=== PATIENT | male | born 1950 | race Caucasian/White ===

== ENCOUNTER → 2018-01-16 | Outpatient (CLI) | payer MEDICARE, OTHER ==
--- NOTE | 2018-01-16 15:42 | NM ---
EXAMINATION TYPE: NM bone scan whole body DATE OF EXAM: 01/16/2018 COMPARISON: NONE HISTORY: Prostate cancer Delayed whole-body scanning was performed following the injection of 22.9 mCi Tc 99m MDP. Images wer e acquired 3 hours post injection. FINDINGS: There is some focal increased radiotracer accumulation in the region of the superior L3 vertebral lev el. Metastatic lesion at this level is not excluded. Some mild uptake may be in the posterior right lower cervical spine and a punctate area in the reheater helper ior left cervical spine. These areas are more likely related to degenerative change. There is some increased uptake in the region of the bilateral hips left more so than right likely rel ated to degenerative changes. IMPRESSION: 1. Degenerative changes bilateral hips and likely within the cervical spine. 2. Mild uptake within the region of the L3 vertebral body. Metastasis at this level is not excluded.
== END | disposition home or self-care (01) ==
LOC: RADNMMAIN 11:19
PROVIDERS: ATTEND Urology
DX: C61 Malignant neoplasm of prostate (principal)
CPT/HCPCS: 78306; A9503

== ENCOUNTER → 2020-02-02 | Outpatient (CLI) | payer MEDICARE, OTHER ==
--- NOTE | 2020-02-02 13:38 | XR ---
EXAMINATION TYPE: XR Hip Complete LT DATE OF EXAM: 02/02/2020 CLINICAL HISTORY: Chronic left hip pain. TECHNIQUE: AP and frogleg views of the left hip are obtained. COMPARISON: None. FINDINGS: There is no acute fracture/dislocation evident in the left hip. Advanced degenerative barrow ge with marked superior joint space loss along with subchondral cystic change and joint space scleros is. Large osteophyte from the inferior medial margin of the humeral head. Loss of normal spherical sh ape of the humeral head. Moderate to severe head and neck collar spurring. A few left-sided pelvic ph leboliths. IMPRESSION: There are advanced degenerative changes left hip joint as detailed above. Advise orthope dic surgical referral.
== END | disposition home or self-care (01) ==
LOC: RADXRMAIN 13:13
PROVIDERS: ATTEND Family Medicine
DX: M16.12 Unilateral primary osteoarthritis, left hip (principal)
CPT/HCPCS: 73502

== ENCOUNTER → 2020-03-26 | Outpatient (CLI) | payer MEDICARE, OTHER ==
[2020-03-26 08:29] LABS: HCT 43.4 % (39.0-53.0); HGB 14.5 gm/dL (13.0-17.5); MCH 30.6 pg (25.0-35.0); MCHC 33.4 g/dL (31.0-37.0); MCV 91.5 fL (80.0-100.0); Mean Platelet Volume 7.3; Platelet Count 198 k/uL (150-450); RBC 4.74 m/uL (4.30-5.90); RDW 12.6 % (11.5-15.5); WBC 4.7 k/uL (3.8-10.6)
[2020-03-26 08:33] LABS: Appearance,Urine Clear (Clear); Bilirubin,Urine Negative (Negative); Blood,Urine Negative (Negative); Color,Urine Yellow; Glucose,Urine (UA) Negative (Negative); Ketones,Urine Negative (Negative); Leukocyte Esterase,Urine Negative (Negative); Nitrite,Urine Negative (Negative); PH, Urine 7.5 (5.0-8.0); Protein,Urine Negative (Negative); Specific Gravity,Urine 1.009 (1.001-1.035); Urobilinogen,Urine <2.0 mg/dL (<2.0)
[2020-03-26 08:39] LABS: Partial Thromboplastin Time 23.8 sec (22.0-30.0); Prothrombin Time 10.1 sec (9.0-12.0)
[2020-03-26 08:51] LABS: Albumin 4.5 g/dL (3.5-5.0); Calcium 9.2 mg/dL (8.4-10.2); Potassium 4.2 mmol/L (3.5-5.1); Total Bilirubin 1.1 mg/dL (0.2-1.3); Total Protein 7.2 g/dL (6.3-8.2)
[2020-03-29 17:17] LABS: Hemoglobin A1C 5.3 % (4.0-6.0)
== END | disposition home or self-care (01) ==
LOC: LABPAT 07:50
PROVIDERS: ATTEND Orthopaedic Surgery
DX: Z01.818 Encounter for other preprocedural examination (principal); Z79.01 Long term (current) use of anticoagulants; Z01.812 Encounter for preprocedural laboratory examination
CPT/HCPCS: 36415; 80053; 81003; 83036; 85027; 85610; 85730; 86850; 86900; 86901; 87070

== ENCOUNTER 2020-04-06 08:14 | Day surgery (SDC) | payer MEDICARE, OTHER ==
[2020-04-02 17:05] VITALS: BMI 23.7
[~2020-04-06 08:14] MED LIST: ACETAMINOPHEN TAB 500 MG TAB PO ONE; DEXAMETHASONE SOD PHOSPHATE 10 MG/ML 1 ML VIAL IV ONE; GABAPENTIN 300 MG CAP PO ONE; HYDROmorphone 0.5 MG/0.5 ML SYRINGE IVP PRN; LIDOCAINE 1% (10MG/ML) FOR IV START INTRADERMA PRN; MELOXICAM 7.5 MG TAB PO ONE; MIDAZOLAM 2 MG/2 ML VIAL IV PRN; ONDANSETRON 4 MG/2 ML VIAL IVP ONE; TRANEXAMIC ACID 1,000 MG in SODIUM CHLORIDE 0.9% 100 ML IVPB ONE; fentaNYL (PF) 50 MCG/ML 2 ML AMP IV PRN
[2020-04-06] MEDS: LACTATED RINGERS 1,000 ML IV SCH (08:45)
[2020-04-06] MEDS ORDERED: PROPOFOL 10 MG/ML 20 ML VIAL IV ONE (09:38)
[2020-04-06] MEDS ORDERED: MIDAZOLAM 2 MG/2 ML VIAL ONE (09:38)
[2020-04-06] MEDS ORDERED: HEPARIN SODIUM,PORCINE 10,000 UNIT/ML 1 ML VIAL ONE (09:38)
[2020-04-06] MEDS ORDERED: fentaNYL (PF) 50 MCG/ML 2 ML AMP ONE (09:38)
[2020-04-06] MEDS ORDERED: SODIUM CHLORIDE 0.9% IRRIG 1,000 ML BTL IRRIGATION ONE (09:38)
[2020-04-06] MEDS ORDERED: SODIUM CHLORIDE 0.9% 100 ML BAG ONE (09:38)
[2020-04-06] MEDS ORDERED: TRANEXAMIC ACID 1,000 MG/10 ML VIAL ONE (09:38)
[2020-04-06] MEDS ORDERED: ceFAZolin 3,000 MG in SODIUM CHLORIDE 0.9% IRRIGATIO 3,000 ML IRRIGATION ONE (09:42)
[2020-04-06] MEDS: ROPIVACAINE 246.25 MG, EPINEPHrine 0.5 MG, KETOROLAC 30 MG, cloNIDine HCL/PF 80 MCG, WA... MISCELLANE ONE ×10 (09:59→10:58)
[2020-04-06] MEDS ORDERED: MAGNESIUM HYDROXIDE 2,400 MG/10 ML CUP PO PRN (10:12)
[2020-04-06] MEDS ORDERED: NALOXONE 0.4 MG/ML 1 ML VIAL IV PRN (10:12)
[2020-04-06] MEDS ORDERED: HYDROmorphone 0.5 MG/0.5 ML SYRINGE IVP PRN ×3 (10:12)
[2020-04-06] MEDS ORDERED: ONDANSETRON 4 MG/2 ML VIAL IVP PRN (10:12)
[2020-04-06] MEDS ORDERED: HYDROcodone/APAP 5-325MG 1 EACH TAB PO PRN ×2 (10:12)
[2020-04-06] MEDS ORDERED: LACTATED RINGERS 1,000 ML IV ONE (11:08)
--- NOTE | 2020-04-06 11:18 | P.OP ---
Date of Procedure: 04/06/20 Preoperative Diagnosis: severe osteoarthritis left hip Postoperative Diagnosis: severe osteoarthritis left hip Procedure(s) Performed: left total hip arthroplasty with a direct anterior approach Implants: King and nephew Polarstem size 5 standard King & Nephew R3, 3 hole acetabular shell, 56 mm King & Nephew reflection 6.5 mm cancellus screw, 20 mm 2 King & Nephew R3, XLPE 20 acetabular liner King & Nephew Oxinium femoral head 36 m, +4 All components were press-fit. The articulation is Oxinium on polyethylene. Anesthesia: spinal Surgeon: Raul Caraballo Repair Armature Winder Helper #1: Mildred Garg Estimated Blood Loss (ml): 100 Pathology: other (femoral head) Condition: stable Disposition: PACU Indications for Procedure: After failure of conservative treatment we discussed the surgical and nonsurgical treatment options at length. Patient wishes to proceed with a total hip arthroplasty with a direct anterior approach. Complications specific to this procedure were discussed at length, including but not limited to infection, leg length discrepancy, dislocation, and nerve injury. Covid-19 was also discussed at length with the patient, and they are aware of the current policies and procedures. The patient was given the option of delaying surgery, but they elect to proceed knowing these risks. Patient is aware of all these complications and informed consent was obtained Operative Findings: the operative findings are consistent with severe osteoarthritis of the left hip Description of Procedure: Patient was seen and evaluated in the preoperative area, consent was reviewed, and the surgical site was marked with a skin marker. Patient was then brought to the operating room and given prophylactic antibiotics intravenously. 1 g of Tranexamic acid was also given. A spinal anesthetic was administered by the anesthesia department. The patient was then placed on the [place] table with the bony prominences well-padded. The hip area was then prepped and draped in usual sterile fashion. A universal timeout was then performed, which confirmed the patient's name, surgical site, ALLERGIES, and procedure being performed. Next the incision site was located at 1 cm distal and 1 cm lateral to the anterior superior iliac spine. The skin and subcutaneous tissues were sharply incised. Incision was carefully dissected down to the fascia overlying the tensor fascia shon muscle. This fascia was then incised in line with the incision. Next, using blunt finger dissection, the tensor fascia shon muscle was dissected off its investing fascia. The muscle was then carefully retracted laterally with a cobra retractor over the lateral neck of the femur. Next, the circumflex vessels were identified and cauterized using the AquaMantis device. The anterior hip capsule was then exposed. The capsule was then opened and an inverted T fashion. Cobra retractors were then placed intracapsularly. The proximal femur was then visualized. The femoral neck was then osteotomized appropriate level above the lesser trochanter. Small amount of traction was placed with the [place] table. A small wedge of bone was then removed from the remaining femoral head. Next, using a corkscrew femoral head was easily removed from the acetabulum. On gross visual inspection, the femoral head had complete loss of articular cartilage in multiple periarticular osteophytes. Attention was then turned to the acetabulum. the acetabulum was exposed and any remaining labrum was excised. Sequential reaming of the acetabulum was performed using fluoroscopic guidance. When the appropriate size was reached, a trial was then placed. The position and fit of the trial was checked with fluoroscopy. The trial was then removed. Then, using fluoroscopic guidance, the final implant was impacted at 20 of anteversion and 40 of abduction, and fully seated in the acetabulum. 2 screws were then placed in the acetabulum. Again fluoroscopy was used to check pos ition of the screws. Next, the liner was then impacted, with a 20 elevated liner located in the anterior superior quadrant. Component locking was confirmed. Attention was then directed to the femur. With the aid of the [place] table, the femur was externally rotated to approximately 130, extended, and abducted under the opposite leg. A side hook was then placed under the proximal femur, and the side hook elevator was used to elevate the proximal femur. Retractors were then placed. A capsular release was performed, as well as a release of the conjoined tendon, which afforded excellent visualization of the proximal femur. Next, a box osteotome was used to lateralize the proximal femur. A fifth hand was then used to locate the femoral canal. Sequential broaching was then performed with appropriate size which afforded excellent fixation in the proximal femur. A trial was then placed with appropriate head and neck, and the hip was gently reduced with the aid of the [place] table. Fluoroscopy was then used to check position of the components, as well as to ensure equal leg lengths. The hip was then gently dislocated and the trials were then removed. Final implants were then impacted and the hip was again reduced. Final fluoroscopic x-rays confirmed that the components were in anatomic position, as well as equal leg lengths. The hip was also taken through range of motion, and found to be stable. The hip was then copiously irrigated with antibiotic solution with pulsatile lavage. The hip was then irrigated with Irrisept solution. The soft tissues were then injected with a ropivacaine solution, which consisted of 246.25 mg of ropivacaine, 0.5 mg of epinephrine, 30 mg of Toradol, 80 g of clonidine, and 48.45 mL of sterile water, for a total of 100 mL of fluid injected. A second dose of 1 g of Tranexamic acid was also given. the fascia was then closed with 2-0 strata fix suture. The subcutaneous tissue was closed with 3-0 Vicryl. The subcuticular tissue was closed with 3-0 strata fix suture. The skin was then closed with Dermabond glue and a sterile silver dressing. The patient was then transferred to the recovery room in stable condition. The physiotherapy assistant LAURIE Rudd was required due to the complexity of surgery, and the need for skilled lpn or medical assistant for positioning, draping, exposure, retraction, and closure of the wound.
--- NOTE | 2020-04-06 11:36 | FL ---
Fluoroscopy History: Lt anterior hip 42 sec FL seconds of fluoroscopic time and 2 films are submitted for Lt anterior hip .
--- NOTE | 2020-04-06 12:22 | XR ---
EXAMINATION TYPE: XR Hip Limited LT DATE OF EXAM: 04/06/2020 CLINICAL HISTORY: Postoperative evaluation TECHNIQUE: Single portable view of the left hip was submitted. FINDINGS: Noted are changes of total hip arthroplasty with femoral and acetabular components appearin g well seated. Alignment is anatomic. Postsurgical soft tissue changes are evident. IMPRESSION: Satisfactory postoperative alignment
[2020-04-06] MEDS ORDERED: hydrALAZINE HCL 20 MG/ML 1 ML VIAL IVP PRN (18:32)
[2020-04-06 19:03] LABS: Basophils % (A) 0 %; Eosinophils % (A) 0 %; HCT 39.1 % (39.0-53.0); HGB 13.2 gm/dL (13.0-17.5); Lymphocytes # (A) 0.3 k/uL (1.0-4.8); Lymphocytes % (A) 3 %; MCH 31.6 pg (25.0-35.0); MCHC 33.7 g/dL (31.0-37.0); MCV 93.8 fL (80.0-100.0); Mean Platelet Volume 7.4; Monocytes # (A) 0.8 k/uL (0-1.0); Monocytes % (A) 7 %; Neutrophils # (A) 10.8 k/uL (1.3-7.7); Neutrophils % (A) 90 %; Platelet Count 190 k/uL (150-450); RBC 4.17 m/uL (4.30-5.90); RDW 11.8 % (11.5-15.5)
[2020-04-06 19:24] LABS: ALT 26 U/L (4-49); AST 44 U/L (17-59); African American GFR (CKD) 73 (>60 ml/min/1.73 sqM); Albumin 3.7 g/dL (3.5-5.0); Albumin/Globulin Ratio 1.5; Alkaline Phosphatase 59 U/L (38-126); Anion Gap 5 mmol/L; Blood Urea Nitrogen 22 mg/dL (9-20); Calcium 8.7 mg/dL (8.4-10.2); Carbon Dioxide 28 mmol/L (22-30); Chloride 102 mmol/L (98-107); Globulin 2.5 g/dL; Glucose 123 mg/dL (74-99); Non-African American GFR(CKD) 63 (>60 ml/min/1.73 sqM); Potassium 4.7 mmol/L (3.5-5.1); Sodium 135 mmol/L (137-145); Total Bilirubin 0.9 mg/dL (0.2-1.3); Total Protein 6.2 g/dL (6.3-8.2)
[2020-04-06] MEDS: SODIUM CHLORIDE 0.9% 1,000 ML IV SCH (19:26)
--- NOTE | 2020-04-06 19:36 | XR ---
EXAMINATION TYPE: XR chest 1V portable DATE OF EXAM: 04/06/2020 COMPARISON: NONE HISTORY: Short of breath TECHNIQUE: Single view FINDINGS: Heart is normal. Lungs are clear. There is no heart failure. Diaphragm is normal. There are chest leads. Bony thorax is intact. IMPRESSION: No active cardiopulmonary disease. No evidence of heart failure.
[2020-04-06] MEDS ORDERED: SENNOSIDES-DOCUSATE SODIUM 1 EACH TAB PO SCH (21:00)
[2020-04-06] MEDS ORDERED: LOSARTAN 25 MG TAB PO SCH (21:00)
[2020-04-06] MEDS: ASPIRIN 325 MG TAB PO SCH (21:08)
[2020-04-07] MEDS: SODIUM CHLORIDE 0.9% 1,000 ML IV SCH (01:29)
[2020-04-07] MEDS: LACTATED RINGERS 1,000 ML IV SCH (01:30)
--- NOTE | 2020-04-07 02:07 | CONS ---
CONSULTATION REASON FOR CONSULTATION: Advice regarding hypertension and multiple other medical issues, requested by Orthopedic Surgery. HISTORY OF PRESENT ILLNESS: This 70-year-old gentleman with a past medical history of hypertension, DJD, history of nodule of the voice box being followed by Dr. Jose Alfredo Torres in the outpatient setting underwent left total hip joint arthroplasty for severe DJD by Dr. Caraballo. Postoperatively, patient was noted to have some in the rhythm strips and EKG was done which showed some bradycardia and as well as some peaked T-waves. Otherwise, there is no history of chest pain, palpitations, hematochezia or melena. The initial troponins were negative. Patient admitted for further evaluation and treatment. There is no shortness of breath, hematochezia or melena. PAST MEDICAL: Hypertension, history of DJD, history of nodule of voice box. MEDICATIONS: Medications prior to admission include home medications: Irbesartan 75 mg at bedtime. ALLERGIES: KETAMINE. FAMILY HISTORY: No history of heart disease or strokes in the family. SOCIAL HISTORY: No history of smoking. No history of alcohol intake. REVIEW OF SYSTEMS: ENT: No diminished hearing or diminished vision. CARDIOVASCULAR SYSTEM: As mentioned earlier. RESPIRATORY SYSTEM: No cough or hemoptysis. GI: No nausea. : No dysuria. NERVOUS SYSTEM: No numbness or weakness. ALLERGY/IMMUNOLOGY: No asthma or hayfever. MUSCULOSKELETAL: As mentioned earlier. HEMATOLOGY: No history of anemia. ENDOCRINE: No history of diabetes or hypothyroidism. CONSTITUTIONAL: As mentioned earlier. DERMATOLOGY: Negative. RHEUMATOLOGY: Negative. PSYCHIATRY: As mentioned earlier. PHYSICAL EXAMINATION: Patient is alert and oriented x3. Pulse 64, blood pressure 170/93, respiration 17, temperature 97.7, pulse ox 100% on room air. HEENT: Conjunctivae normal. Oral mucosa moist. NECK: No jugular venous distention. No carotid bruit. No lymph node enlargement. CARDIOVASCULAR: S1, S2 muffled. RESPIRATORY: Breath sounds diminished at the bases. No rhonchi. No crackles. ABDOMEN: Soft, nontender. No mass palpable. LEGS: Status post surgery. NERVOUS SYSTEM: Higher functions as mentioned earlier. Moves all 4 limbs. No focal motor or sensory deficit. LYMPHATICS: No lymphadenopathy of the neck, axillae or groin. SKIN: No ulcer, rash or bleeding. JOINTS: No active deforming arthropathy. LABS: Labs at this time show troponin less than 0.012. ASSESSMENT: 1. Status post left total hip joint arthroplasty for severe degenerative joint disease. 2. Minimal ST depressions apparently on the rhythm strips. 3. History of hypertension. 4. History of degenerative joint disease. 5. History of nodule of the larynx. 6. History of bicipital tendon repair. 7. History of rectal fissure. 8. History of prostatectomy. 9. FULL CODE. RECOMMENDATIONS AND DISCUSSION: This 70-year-old gentleman who presented with multiple medical issues, at this time I recommend continue the current medication, continue symptomatic treatment. Resume the home medication. Monitor blood pressure closely. Use p.r.n. antihypertensive medications if the blood pressure is extremely high. Otherwise, I would also recommend serial troponins and as well as repeat EKG in the morning and the patient does not have any chest pain currently. The patient might require some workup as an outpatient for which the patient can follow up with Dr. Torres. Otherwise, will continue to closely monitor. Recommend incentive spirometry, DVT prophylaxis. Thank you Dr. Caraballo for letting us participate in the care of this patient. MMODL / IJN: [id number] / OCTAVIA
[2020-04-07 06:33] LABS: Basophils % (A) 0 %; Eosinophils % (A) 0 %; HCT 35.8 % (39.0-53.0); HGB 12.2 gm/dL (13.0-17.5); Lymphocytes # (A) 0.9 k/uL (1.0-4.8); Lymphocytes % (A) 12 %; MCH 31.9 pg (25.0-35.0); MCHC 34.1 g/dL (31.0-37.0); MCV 93.5 fL (80.0-100.0); Mean Platelet Volume 7.2; Monocytes # (A) 0.7 k/uL (0-1.0); Monocytes % (A) 8 %; Neutrophils # (A) 6.3 k/uL (1.3-7.7); Neutrophils % (A) 79 %; Platelet Count 172 k/uL (150-450); RBC 3.83 m/uL (4.30-5.90); RDW 11.9 % (11.5-15.5)
[2020-04-07] MEDS: ASPIRIN 325 MG TAB PO SCH (08:20)
[2020-04-07] MEDS ORDERED: MELOXICAM 7.5 MG TAB PO SCH (09:00)
[2020-04-07 09:26] VITALS: BP 132/72; PULSE 74; RESP 16; TEMP 98.5
--- NOTE | 2020-04-07 10:45 | P.DS ---
Providers Expected date of discharge: 04/07/20 Attending physician: Raul Caraballo Consults: 04/06/20 10:12 Consult Physician Routine Consulting Provider: Irma Díaz Consult Reason/Comments: medical management Do you want consulting provider notified?: Yes Primary care physician: Jose Alfredo Torres - Discharge Diagnosis(es) (1) Osteoarthritis of left hip Current Visit: Yes Status: Acute (2) S/P total hip arthroplasty Current Visit: Yes Status: Acute Hospital Course: This is a 70-year-old male with known history of degenerative arthritis of the left hip. The patient presents for evaluation. After discussion and consideration patient elects to proceed with total hip arthroplasty. The patient is seen preoperatively by Dr. Caraballo and cleared for surgery. Patient is admitted to [facility] on 04/06/2020 for total hip arthroplasty. The procedures performed without complication or sequelae. The patient is doing well postoperatively. Labs and vital signs are stable on day of discharge. On day of discharge patient's hip incision is healing well. There is minimal erythema. There is no drainage noted at this time. There is minimal soft tissue swelling to the hip and thigh. Patient has full foot and ankle motion without difficulty or pain. Neurovascular status to the left lower extremity is intact. Opioid start talking form is discussed and signed. Patient is discharged home in good condition. Please see med rec for accurate list of home medications. Plan - Discharge Summary Discharge Rx Participant: No New Discharge Prescriptions: New Aspirin 325 mg PO BID #60 tab HYDROcodone/APAP 5-325MG [[place] 5-325] 1 - 2 tab PO Q6HR PRN #48 tab PRN Reason: Pain Sennosides [Senokot] 2 tab PO DAILY PRN #60 tablet PRN Reason: Constipation No Action Irbesartan 75 mg PO HS Discharge Medication List Irbesartan 75 mg PO HS 04/02/20 [History] Aspirin 325 mg PO BID #60 tab 04/07/20 [Rx] HYDROcodone/APAP 5-325MG [[place] 5-325] 1 - 2 tab PO Q6HR PRN #48 tab 04/07/20 [Rx] Sennosides [Senokot] 2 tab PO DAILY PRN #60 tablet 04/07/20 [Rx] Follow up Appointment(s)/Referral(s): Raul Caraballo DO [Doctor of Osteopathic Medicine] - 2 Weeks Activity/Diet/Wound Care/Special Instructions: Weightbearing as tolerated with walker Leave dressing intact. Dressing may be removed by home care nurse in 10 days. May shower with dressing on. Please take aspirin 325 mg twice daily for 30 days to prevent blood clots. Please wear compression stockings during the day until follow-up appointment to help prevent blood clots. May remove at night. [facility]up with [facility] in [facility] weeks, please call with any questions or concerns [phone] Discharge Disposition: HOME WITH HOME HEALTH SERVICES
--- NOTE | 2020-04-07 22:11 | PN ---
PROGRESS NOTE DATE OF SERVICE: 04/07/2020 This 70-year-old gentleman who was admitted after left total hip joint arthroplasty is improving significantly. No chest pain. No palpitations. No fever. PHYSICAL EXAMINATION: Alert and oriented x3. Pulse is 74, blood pressure 132/72, respirations 16, temperature 98.2, pulse ox 98% on room air. HEENT: Conjunctivae normal. NECK: No jugular venous distention. CARDIOVASCULAR SYSTEM: S1, S2 muffled. RESPIRATORY SYSTEM: Breath sounds diminished at the bases. ABDOMEN: Soft. LEGS: Status post surgery. NERVOUS SYSTEM: No focal deficit. LABS: Hemoglobin 12.8, white count is 8, sodium 135. ASSESSMENT: 1. Status post left total hip joint arthroplasty for severe degenerative joint disease. 2. Minimal ST depression apparently on the rhythm strips with normal EKG. 3. History of hypertension. 4. History of degenerative joint disease. 5. History of nodule in the larynx. 6. History of bicipital tendon repair. 7. History of rectal fissure. 8. History of prostatectomy. 9. FULL CODE. RECOMMENDATIONS AND DISCUSSION: I recommend to continue current medications, continue with the monitoring, symptomatic treatment. I recommend close followup with primary physician. The troponins are negative. DVT prophylaxis. Further recommendations to follow. MMODL / IJN: [id number] /
== END 2020-04-07 11:52 | disposition home health service (06) ==
LOC: OR 08:14 → 4SSUR 11:22 → OR 04-07 11:52
PROVIDERS: ATTEND Orthopaedic Surgery
DX: M16.12 Unilateral primary osteoarthritis, left hip (principal); I97.191 Other postprocedural cardiac functional disturbances following other surgery; I10 Essential (primary) hypertension; Z88.8 Allergy status to other drugs, medicaments and biological substances; Z79.1 Long term (current) use of non-steroidal anti-inflammatories (NSAID); Z79.899 Other long term (current) drug therapy; Z85.46 Personal history of malignant neoplasm of prostate; Z90.79 Acquired absence of other genital organ(s); Z98.49 Cataract extraction status, unspecified eye; Z82.49 Family history of ischemic heart disease and other diseases of the circulatory system
CPT/HCPCS: 93005; 97110; 97161; 97165; 86891; 80053; 84484 ×2; 85025 ×2; 88300; 73501 ×2; 71045; 27130; C1776; J0171; J1100; J0690 ×3; J2405; J1885; J2795; J0735; J1170; 86850; 86900; 86901

== ENCOUNTER → 2020-08-04 | Outpatient (CLI) | payer MEDICARE, OTHER ==
[2020-08-04 08:16] LABS: HCT 41.2 % (39.0-53.0); HGB 13.9 gm/dL (13.0-17.5); MCH 30.6 pg (25.0-35.0); MCHC 33.7 g/dL (31.0-37.0); MCV 90.7 fL (80.0-100.0); Mean Platelet Volume 8.1; Platelet Count 158 k/uL (150-450); RBC 4.55 m/uL (4.30-5.90); RDW 13.1 % (11.5-15.5); WBC 3.6 k/uL (3.8-10.6)
[2020-08-04 08:25] LABS: Partial Thromboplastin Time 22.9 sec (22.0-30.0); Prothrombin Time 10.5 sec (9.0-12.0)
[2020-08-04 08:28] LABS: Albumin 4.3 g/dL (3.5-5.0); Potassium 4.5 mmol/L (3.5-5.1); Total Bilirubin 1.2 mg/dL (0.2-1.3)
[2020-08-04 09:14] LABS: Appearance,Urine Clear (Clear); Bilirubin,Urine Negative (Negative); Blood,Urine Negative (Negative); Color,Urine Yellow; Glucose,Urine (UA) Negative (Negative); Ketones,Urine Negative (Negative); Leukocyte Esterase,Urine Negative (Negative); Nitrite,Urine Negative (Negative); Protein,Urine Negative (Negative); Specific Gravity,Urine 1.014 (1.001-1.035); Urobilinogen,Urine <2.0 mg/dL (<2.0)
== END | disposition home or self-care (01) ==
LOC: LABWHC1 07:45
PROVIDERS: ATTEND Orthopaedic Surgery
DX: Z01.818 Encounter for other preprocedural examination (principal); Z79.01 Long term (current) use of anticoagulants; Z01.812 Encounter for preprocedural laboratory examination
CPT/HCPCS: 36415; 80053; 81003; 85027; 85610; 85730; 87070

== ENCOUNTER 2020-08-10 05:45 | Day surgery (SDC) | payer MEDICARE, OTHER ==
[2020-08-09 09:11] VITALS: BMI 25.1
[~2020-08-10 05:45] MED LIST changes: -ACETAMINOPHEN TAB 500 MG TAB PO ONE; +ACETAMINOPHEN TAB 500 MG TAB PO PRN; -DEXAMETHASONE SOD PHOSPHATE 10 MG/ML 1 ML VIAL IV ONE; +DEXAMETHASONE SOD PHOSPHATE 4 MG/ML 1 ML VIAL IV ONE; -GABAPENTIN 300 MG CAP PO ONE; +GABAPENTIN 300 MG CAP PO PRN; -HYDROmorphone 0.5 MG/0.5 ML SYRINGE IVP PRN; +LACTATED RINGERS 1,000 ML IV SCH; -MELOXICAM 7.5 MG TAB PO ONE; +MELOXICAM 7.5 MG TAB PO PRN; +ROPIVACAINE 246.25 MG, EPINEPHrine 0.5 MG, KETOROLAC 30 MG, cloNIDine HCL/PF 80 MCG, WA... MISCELLANE PRN; -TRANEXAMIC ACID 1,000 MG in SODIUM CHLORIDE 0.9% 100 ML IVPB ONE; +TRANEXAMIC ACID 1,000 MG in SODIUM CHLORIDE 0.9% 100 ML IVPB PRN; -fentaNYL (PF) 50 MCG/ML 2 ML AMP IV PRN
[2020-08-10] MEDS ORDERED: HYDROmorphone 0.2 MG/1 ML SYRINGE IVP PRN (05:50)
[2020-08-10] MEDS ORDERED: HYDROmorphone 0.5 MG/0.5 ML SYRINGE IVP PRN ×3 (05:50→07:00)
[2020-08-10] MEDS ORDERED: NALOXONE 0.4 MG/ML 1 ML VIAL IV PRN (05:50)
[2020-08-10] MEDS ORDERED: HYDROcodone/APAP 7.5-325MG 1 EACH TAB PO PRN ×2 (05:53)
[2020-08-10] MEDS ORDERED: SODIUM CHLORIDE 0.9% 1,000 ML IV SCH (06:00)
[2020-08-10] MEDS ORDERED: fentaNYL (PF) 50 MCG/ML 2 ML AMP IV PRN (07:00)
[2020-08-10] MEDS ORDERED: PROPOFOL 10 MG/ML 20 ML VIAL IV ONE (07:04)
[2020-08-10] MEDS ORDERED: TRANEXAMIC ACID 1,000 MG/10 ML VIAL ONE (07:04)
[2020-08-10] MEDS ORDERED: SODIUM CHLORIDE 0.9% IRRIG 1,000 ML BTL IRRIGATION ONE (07:04)
[2020-08-10] MEDS ORDERED: MIDAZOLAM 2 MG/2 ML VIAL ONE (07:04)
[2020-08-10] MEDS ORDERED: HEPARIN SODIUM,PORCINE 10,000 UNIT/ML 1 ML VIAL ONE (07:04)
[2020-08-10] MEDS ORDERED: LIDOCAINE 1% INJ 10MG/ML (20 ML MDV) ONE (07:04)
[2020-08-10] MEDS ORDERED: ePHEDrine SULFATE/0.9% NACL/PF 50 MG/5 ML SYRINGE IV ONE (07:04)
[2020-08-10] MEDS ORDERED: ROCURONIUM 10 MG/ML (5 ML VIAL) IV ONE (07:04)
[2020-08-10] MEDS ORDERED: SODIUM CHLORIDE 0.9% 100 ML BAG ONE (07:04)
[2020-08-10] MEDS ORDERED: fentaNYL (PF) 50 MCG/ML 2 ML AMP ONE (07:04)
[2020-08-10] MEDS ORDERED: ceFAZolin 3,000 MG in SODIUM CHLORIDE 0.9% IRRIGATIO 3,000 ML IRRIGATION ONE (07:09)
[2020-08-10] MEDS ORDERED: LACTATED RINGERS 1,000 ML IV ONE (08:33)
--- NOTE | 2020-08-10 08:33 | P.OP ---
Date of Procedure: 08/10/20 Preoperative Diagnosis: Severe Osteoarthritis right hip Postoperative Diagnosis: Severe osteoarthritis right hip Procedure(s) Performed: Right total hip arthroplasty with a direct anterior approach Implants: King & Nephew Polarstem standard size 5 King & Nephew R3, 3 hole hemispherical acetabular shell, 56 mm King & Nephew Reflection 6.5 mm cancellus screw, 20 mm 2 King & Nephew R3, XLPE 20 acetabular liner King & Nephew Oxinium femoral head 36 m, +4 All components were press-fit. The articulation is Oxinium on polyethylene. Anesthesia: GETA Surgeon: Raul Caraballo Pinking Machine Operator #1: Mildred Garg Estimated Blood Loss (ml): 250 (70 mL returned with Cell Saver) Pathology: other (Femoral head) Condition: stable Disposition: PACU Indications for Procedure: After failure of conservative treatment we discussed the surgical and nonsurgical treatment options at length. Patient wishes to proceed with a total hip arthroplasty with a direct anterior approach. Complications specific to this procedure were discussed at length, including but not limited to infection, leg length discrepancy, dislocation, nerve injury, and fracture. Covid-19 was also discussed at length with the patient, and they are aware of the current policies and procedures. The patient was given the option of delaying surgery, but they elect to proceed knowing these risks. Patient is aware of all these complications and informed consent was obtained Operative Findings: The operative findings are consistent with severe osteoarthritis of the right hip Description of Procedure: Patient was seen and evaluated in the preoperative area and the consent was reviewed. The operative site was marked with a skin marker. The patient was then brought to the operating room and given preoperative antibiotics intravenously. 1 g of Tranexamic acid was also given intravenously. A spinal anesthetic was administered by the anesthesia department. The patient was then placed on the [place] table with the bony prominences well-padded. The hip area was then prepped with a ChloraPrep solution and draped in the usual sterile fashion. A universal timeout was then performed, which confirmed the patient's name, surgical site, ALLERGIES, and procedure being performed on the consent. Next the incision site was located at the flexion crease of the right hip. The skin and subcutaneous tissues were sharply incised. Incision was carefully dissected down to the fascia overlying the tensor fascia shon muscle. This fascia was then incised in line with the incision. Care was taken to stay laterally in order to avoid injuring the lateral femoral cutaneous nerve. Next, using blunt finger dissection, the tensor fascia shon muscle was dissected off its investing fascia. The muscle was then carefully retracted laterally with a cobra retractor over the lateral neck of the femur. Next, the circumflex vessels were identified and cauterized using the AquaMantis device. The anterior hip capsule was then exposed. The capsule was then opened and an inverted T fashion. Cobra retractors were then placed intracapsularly. The retractors were maintained intracapsular throughout the procedure. The proximal femur was then visualized. A small amount of traction was placed on the leg. The femoral neck was then osteotomized appropriate level above the lesser trochanter. A small wedge of bone was then removed from the remaining femoral head. Next, using a corkscrew the femoral head was removed from the acetabulum. On gross visual inspection, the femoral head had complete loss of articular cartilage and multiple periarticular osteophytes. The femoral head was then measured. Attention was then turned to the acetabulum. The acetabulum was exposed and any remaining labrum was excised. Sequential reaming of the acetabulum was performed using fluoroscopic guidance until there was a good bed of bleeding cancellus bone. When the appropriate size was reached, a trial was then placed. The position and fit of the trial was checked with fluoroscopy. The trial was then removed. Then, using fluoroscopic guidance, the final implant was impacted at 20 of anteversion and 40 of abduction, and fully seated in the acetabulum. 2 screws were then placed in the acetabulum. Again fluoroscopy was used to check position of the screws. Next, the liner was then impacted, with a 20 elevated liner located in the anterior superior quadrant. Component locking was confirmed. Attention was then directed to the femur. With the aid of the [place] table, the femur was externally rotated to approximately 130, extended, and adducted under the opposite leg. A side hook was then placed under the proximal femur, and the side hook elevator was used to elevate the proximal femur while releasing the capsule. Retractors were then placed. A capsular release was performed, as well as a release of the conjoined tendon, which afforded excellent visualization of the proximal femur. Next, a box osteotome was used to lateralize the proximal femur. A assembly hand was then used to locate the femoral canal. Sequential broaching was then performed with appropriate size wh ich afforded excellent fixation in the proximal femur. A trial was then placed with appropriate head and neck, and the hip was gently reduced with the aid of the [place] table. Fluoroscopy was then used to check position of the components, as well as to ensure equal leg lengths. The hip was then gently dislocated and the trials were then removed. Final implants were then impacted and the hip was again reduced. Final fluoroscopic x-rays confirmed that the components were in anatomic position, as well as equal leg lengths. The hip was also taken through range of motion, and found to be stable. The hip was then copiously irrigated with antibiotic solution with pulsatile lavage. The hip was then irrigated with Irrisept solution. The soft tissues were then injected with a ropivacaine solution, which consisted of 246.25 mg of ropivacaine, 0.5 mg of epinephrine, 30 mg of Toradol, 80 g of clonidine, and 48.45 mL of sterile water, for a total of 100 mL of fluid injected. A second dose of 1 g of Tranexamic acid was also given intravenously. Any blood collected by Cell Saver was then returned to the patient at this time. The fascia was then closed with 2-0 strata fix suture. The subcutaneous tissue was closed with 3-0 Vicryl. The subcuticular tissue was closed with 3-0 strata fix suture. The skin was then closed with Exofin skin glue. After the glue and dried, and Optifoam silver impregnated dressing was applied. The patient was then transferred to the recovery room in stable condition. The assistant account executive LAURIE Rudd was required due to the complexity of surgery, and the need for skilled entry level administrative assistant for positioning, draping, exposure, retraction, and closure of the wound.
--- NOTE | 2020-08-10 08:42 | XR ---
Fluoroscopy INDICATION: Pain FINDINGS: Fluoroscopy time: 19 seconds. Images obtained: 2. IMPRESSIONS: 1. Documentation of fluoroscopy.
[2020-08-10 08:57] VITALS: TEMP 97.1
--- NOTE | 2020-08-10 09:07 | XR ---
EXAMINATION TYPE: XR Hip Limited RT DATE OF EXAM: 08/10/2020 Comparison: None Clinical History: 70-year-old male Status post hip surgery, assess surgical alignment Findings: Image shows placement of right thoracoplasty. The acetabular cup and femoral stem components of the p rosthesis appear well seated without prosthetic fracture. Alignment grossly anatomic. Scattered soft tissue and intra-articular air relating to recent operation. Impression: Uncomplicated postoperative appearance right total hip arthroplasty.
[2020-08-10 09:17] VITALS: RESP 16
[2020-08-10] MEDS ORDERED: ONDANSETRON 4 MG/2 ML VIAL IVP PRN (12:00)
[2020-08-10 12:09] VITALS: BP 118/76; PULSE 80
== END 2020-08-10 13:52 | disposition home health service (06) ==
LOC: OR 05:45
PROVIDERS: ATTEND Orthopaedic Surgery
DX: M16.11 Unilateral primary osteoarthritis, right hip (principal); M25.751 Osteophyte, right hip; I10 Essential (primary) hypertension; Z88.4 Allergy status to anesthetic agent; Z79.899 Other long term (current) drug therapy; Z90.79 Acquired absence of other genital organ(s); Z98.890 Other specified postprocedural states; Z98.41 Cataract extraction status, right eye; Z98.42 Cataract extraction status, left eye; Z96.642 Presence of left artificial hip joint; Z85.46 Personal history of malignant neoplasm of prostate; Z79.891 Long term (current) use of opiate analgesic; Z79.1 Long term (current) use of non-steroidal anti-inflammatories (NSAID); Z82.49 Family history of ischemic heart disease and other diseases of the circulatory system
CPT/HCPCS: 27130; 97162; 86891; 88300; 73501; C1776; J2250; J0171; J1644; J1100; J0690 ×2; J2405; J2001; J3010; J1885; J2795; J2704; J0735; 86850; 86900; 86901

== ENCOUNTER → 2020-08-24 | Outpatient (CLI) | payer MEDICARE, OTHER | END | disposition home or self-care (01) | LOC: LABWHC1 16:43 | PROVIDERS: ATTEND Family Medicine | DX: Z20.822 Contact with and (suspected) exposure to COVID-19 (principal); R50.9 Fever, unspecified | CPT/HCPCS: U0003; C9803; U0005 ==

== ENCOUNTER 2020-09-04 08:53 | Inpatient (IN) | payer MEDICARE, OTHER ==
[2020-09-04] MEDS ORDERED: SODIUM CHLORIDE 0.9% 500 ML 500 ML IV STA (09:13)
[2020-09-04] MEDS ORDERED: ACETAMINOPHEN TAB 325 MG TAB PO STA (09:14)
--- NOTE | 2020-09-04 09:18 | ED ---
General Adult HPI - General Chief complaint: Nausea/Vomiting/Diarrhea Stated complaint: COVID+, NVD Time Seen by Provider: 09/04/20 09:02 Source: patient, RN notes reviewed Mode of arrival: ambulatory Limitations: no limitations - History of Present Illness Initial comments: 70-year-old male with a past medical history of hypertension, hip replacement p resents to the emergency room for a chief complaint of weakness. Patient states that he tested positive for COVID 13 days ago. States that since that time he has felt weak and has had low-grade fevers. State he is feeling his worst today. Patient states he has had a persistent cough. He denies shortness of breath or chest pain. Patient reports that 2 days ago he had an episode of diarrhea. S tates that today he tried to drink some coffee and had some nausea and a little bit of vomiting. Patient states that he decided to come into the ER because he is not getting better.Patient has no other complaints at this time including shortness of breath, chest pain, abdominal pain, headache, or visual changes. - Related Data Home Medications Medication Instructions Recorded Confirmed Irbesartan 75 mg PO HS 04/02/20 09/04/20 Cholecalciferol [Vitamin D3 (25 25 mcg PO DAILY 08/06/20 09/04/20 Mcg = 1000 Iu)] Fluticasone Nasal [place] [Flonase 2 spr EA NOSTRIL DAILY 08/06/20 09/04/20 Nasal [place]] Multivitamins, Thera [Multivitamin 1 tab PO DAILY 08/06/20 09/04/20 (formulary)] Ubidecarenone [Co Q-10] 200 mg PO DAILY 08/06/20 09/04/20 Zinc 50 mg PO DAILY 08/06/20 09/04/20 Cbd Oil 1 dose PO DAILY 09/04/20 09/04/20 Previous Rx's Medication Instructions Recorded Aspirin 325 mg PO BID #60 tab 08/10/20 Allergies Allergy/AdvReac Type Severity Reaction Status Date / Time ketamine Allergy Hallucinati Verified 09/04/20 10:02 ons Review of Systems ROS Statement: Those systems with pertinent positive or pertinent negative responses have been documented in the HPI. ROS Other: All systems not noted in ROS Statement are negative. Past Medical History Past Medical History: Hypertension, Osteoarthritis (OA) History of Any Multi-Drug Resistant Organisms: None Reported Past Surgical History: Orthopedic Surgery Additional Past Surgical History / Comment(s): Nodule off voice box, bicep tendon repaired, rectal fissure repaired, bilateral cataract surgery, prostatectomy, left knee surgery. Right hip Past Anesthesia/Blood Transfusion Reactions: No Reported Reaction Additional Past Anesthesia/Blood Transfusion Reaction / Comment(s): no hx blood transfusion Past Psychological History: No Psychological Hx Reported Smoking Status: Never smoker Past Alcohol Use History: None Reported Past Drug Use History: None Reported - Past Family History Mother Family Medical History: No Reported History General Exam Limitations: no limitations General appearance: alert, in no apparent distress Head exam: Present: atraumatic, normocephalic, normal inspection Eye exam: Present: normal appearance, PERRL, EOMI. Absent: scleral icterus, conjunctival injection, periorbital swelling ENT exam: Present: normal exam, mucous membranes moist Neck exam: Present: normal inspection, full ROM. Absent: tenderness, meningismu s, lymphadenopathy Respiratory exam: Present: normal lung sounds bilaterally. Absent: respiratory distress, wheezes, rales, rhonchi, stridor Cardiovascular Exam: Present: regular rate, normal rhythm, normal heart sounds. Absent: systolic murmur, diastolic murmur, rubs, gallop, clicks GI/Abdominal exam: Present: soft, normal bowel sounds. Absent: distended, tenderness, guarding, rebound, rigid Course Vital Signs 09/04/20 09/04/20 08:54 09:26 Temperature 99.3 F Pulse Rate 62 73 Respiratory 18 18 Rate Blood Pressure 132/77 129/76 O2 Sat by Pulse 94 L 98 Oximetry EKG Findings - EKG Comments: EKG Findings:: Normal sinus rhythm, ventricular rate 72,.Pr int 156, QTc 416 Medical Decision Making - Medical Decision Making Vitals are stable. Patient does appear to be weak. States this is the worse he has felt since being diagnosed with Covid 1913 days ago. His CBC is unremarkable. Leukocytopenia noted as expected. CMP does show evidence of dehydration with a BUN to creatinine ratio of 24. CRP is elevated to almost 200. Chest x-ray does show extensive pneumonia/plan the left. We do have a positive Covid result in our system. At this time case discussed with Dr. Lyon, given since her pneumonia and elevated CRP keeping patient in the hospital to monitor oxygen status and hydrate him. - Lab Data Result diagrams: 09/04/20 09:22 09/04/20 09:22 Lab Results 09/04/20 09/04/20 09/04/20 Range/Units 09:22 09:22 09:22 WBC 8.1 (3.8-10.6) k/uL RBC 3.84 L (4.30-5.90) m/uL Hgb 11.3 L (13.0-17.5) gm/dL Hct 33.3 L (39.0-53.0) % MCV 86.5 (80.0-100.0) fL MCH 29.5 (25.0-35.0) pg MCHC 34.1 (31.0-37.0) g/dL RDW 13.2 (11.5-15.5) % Plt Count 262 (150-450) k/uL MPV 7.3 Neutrophils % 86 % Lymphocytes % 7 % Monocytes % 5 % Eosinophils % 1 % Basophils % 0 % Neutrophils # 6.9 (1.3-7.7) k/uL Lymphocytes # 0.6 L (1.0-4.8) k/uL Monocytes # 0.4 (0-1.0) k/uL Eosinophils # 0.1 (0-0.7) k/uL Basophils # 0.0 (0-0.2) k/uL PT 10.4 (9.0-12.0) sec INR 1.0 (<1.2) APTT 24.1 (22.0-30.0) sec Sodium 138 (137-145) mmol/L Potassium 4.4 (3.5-5.1) mmol/L Chloride 104 (98-107) mmol/L Carbon Dioxide 27 (22-30) mmol/L Anion Gap 7 mmol/L BUN 24 H (9-20) mg/dL Creatinine 0.99 (0.66-1.25) mg/dL Est GFR (CKD-EPI)AfAm 89 (>60 ml/min/1.73 sqM) Est GFR (CKD-EPI)NonAf 77 (>60 ml/min/1.73 sqM) Glucose 125 H (74-99) mg/dL Plasma Lactic Acid Bernard (0.7-2.0) mmol/L Calcium 8.5 (8.4-10.2) mg/dL Magnesium 2.0 (1.6-2.3) mg/dL Total Bilirubin 0.8 (0.2-1.3) mg/dL AST 57 (17-59) U/L ALT 36 (4-49) U/L Alkaline Phosphatase 88 (38-126) U/L Lactate Dehydrogenase 957 H (313-618) U/L C-Reactive Protein 194.1 H (<10.0) mg/L Total Protein 6.6 (6.3-8.2) g/dL Albumin 3.7 (3.5-5.0) g/dL 09/04/20 Range/Units 09:22 WBC (3.8-10.6) k/uL RBC (4.30-5.90) m/uL Hgb (13.0-17.5) gm/dL Hct (39.0-53.0) % MCV (80.0-100.0) fL MCH (25.0-35.0) pg MCHC (31.0-37.0) g/dL RDW (11.5-15.5) % Plt Count (150-450) k/uL MPV Neutrophils % % Lymphocytes % % Monocytes % % Eosinophils % % Basophils % % Neutrophils # (1.3-7.7) k/uL Lymphocytes # (1.0-4.8) k/uL Monocytes # (0-1.0) k/uL Eosinophils # (0-0.7) k/uL Basophils # (0-0.2) k/uL PT (9.0-12.0) sec INR (<1.2) APTT (22.0-30.0) sec Sodium (137-145) mmol/L Potassium (3.5-5.1) mmol/L Chloride (98-107) mmol/L Carbon Dioxide (22-30) mmol/L Anion Gap mmol/L BUN (9-20) mg/dL Creatinine (0.66-1.25) mg/dL Est GFR (CKD-EPI)AfAm (>60 ml/min/1.73 sqM) Est GFR (CKD-EPI)NonAf (>60 ml/min/1.73 sqM) Glucose (74-99) mg/dL Plasma Lactic Acid Bernard 0.9 (0.7-2.0) mmol/L Calcium (8.4-10.2) mg/dL Magnesium (1.6-2.3) mg/dL Total Bilirubin (0.2-1.3) mg/dL AST (17-59) U/L ALT (4-49) U/L Alkaline Phosphatase (38-126) U/L Lactate Dehydrogenase (313-618) U/L C-Reactive Protein (<10.0) mg/L Total Protein (6.3-8.2) g/dL Albumin (3.5-5.0) g/dL Disposition Clinical Impression: COVID-19, Bilateral pneumonia, Elevated C-reactive protein (CRP), Dehydration, Diarrhea, Nausea and vomiting Disposition: ADMITTED IP TO THIS HOSP Is patient prescribed a controlled substance at d/c from ED?: No Referrals: Jose Alfredo Torres DO [Primary Care Provider] - 1-2 days Time of Disposition: 10:51
[2020-09-04 09:35] LABS: Basophils % (A) 0 %; Eosinophils # (A) 0.1 k/uL (0-0.7); Eosinophils % (A) 1 %; HCT 33.3 % (39.0-53.0); HGB 11.3 gm/dL (13.0-17.5); Lymphocytes # (A) 0.6 k/uL (1.0-4.8); Lymphocytes % (A) 7 %; MCH 29.5 pg (25.0-35.0); MCHC 34.1 g/dL (31.0-37.0); MCV 86.5 fL (80.0-100.0); Mean Platelet Volume 7.3; Monocytes # (A) 0.4 k/uL (0-1.0); Monocytes % (A) 5 %; Neutrophils # (A) 6.9 k/uL (1.3-7.7); Neutrophils % (A) 86 %; Platelet Count 262 k/uL (150-450); RBC 3.84 m/uL (4.30-5.90); RDW 13.2 % (11.5-15.5); WBC 8.1 k/uL (3.8-10.6)
[2020-09-04 09:53] LABS: Partial Thromboplastin Time 24.1 sec (22.0-30.0); Prothrombin Time 10.4 sec (9.0-12.0)
--- NOTE | 2020-09-04 09:59 | XR ---
EXAMINATION TYPE: XR chest 1V portable DATE OF EXAM: 09/04/2020 COMPARISON: 04/06/2020 HISTORY: Possible Covid pneumonia TECHNIQUE: Single frontal view of the chest is obtained. FINDINGS: There is a partially consolidative opacity in the left midlung zone and possibly a small pa rtially consolidative opacity right infrahilar region. Findings are consistent with acute pneumonia. Allograft is no pleural effusion or pneumothorax. The heart, pulmonary vasculature mediastinum appear normal. The osseous structures are intact. Impression: bilateral infiltrates left much greater than right. Findings most consistent with acute pneumonia. S hort-term follow-up is recommended.
[2020-09-04 10:00] LABS: Albumin 3.7 g/dL (3.5-5.0); Calcium 8.5 mg/dL (8.4-10.2); Potassium 4.4 mmol/L (3.5-5.1); Total Bilirubin 0.8 mg/dL (0.2-1.3); Total Protein 6.6 g/dL (6.3-8.2)
[2020-09-04 10:12] LABS: C Reactive Protein 194.1 mg/L (<10.0)
[2020-09-04] MEDS ORDERED: DEXAMETHASONE SOD PHOSPHATE 10 MG/ML 1 ML VIAL IV STA (10:44)
[2020-09-04] MEDS ORDERED: ONDANSETRON 4 MG/2 ML VIAL IVP PRN (10:52)
[2020-09-04] MEDS ORDERED: NALOXONE 0.4 MG/ML 1 ML VIAL IV PRN (10:52)
[2020-09-04] MEDS ORDERED: ACETAMINOPHEN TAB 325 MG TAB PO PRN (10:52)
[2020-09-04] MEDS ORDERED: BENZONATATE 100 MG CAP PO PRN (10:54)
[2020-09-04] MEDS: SODIUM CHLORIDE 0.9% 1,000 ML IV SCH (11:09)
[2020-09-04 11:55] LABS: Glucose,Whole Blood 105 mg/dL (75-99)
[2020-09-04 14:51] VITALS: BMI 24.4
[2020-09-04] MEDS: BENZOCAINE/MENTHOL LOZENG 1 EACH LOZENGE MUCOUS MEM PRN ×2 (19:09→23:18)
[2020-09-04 19:15] LABS: Ferritin 753.2 ng/mL (22.0-322.0)
[2020-09-04] MEDS: IRBESARTAN 75 MG PO SCH (19:52)
[2020-09-04] MEDS: ASPIRIN 325 MG TAB PO SCH (19:52)
[2020-09-04] MEDS ORDERED: RX INFO: IV CONTRAST WAS GIVEN 1 EACH MISC MISCELLANE PRN (21:50)
--- NOTE | 2020-09-04 21:52 | P.HPIM ---
History of Present Illness H&P Date: 09/04/20 Chief Complaint: Cough History of presenting complaint: This is a pleasant 70-year-old patient of Dr. Roxie Torres. Chronic stable medical conditions include hypertension, osteoarthritis,. For 4 days patient denies having increasing amount bouts of coughing. Very minimal sputum. Has had some fever on and off. She was diagnosed with COVID about 13 days ago. Appetite is gone down. The last couple of days patient had one or 2 loose stools. No loss of smell or taste. Many minimal body aches. Presented to the ER. Patient's initial pulse ox was anemia from 94-98% on room air. Review of systems: GEN.: Tired EYES: None HEENT: None NECK: None RESPIRATORY: As above CARDIOVASCULAR: None GASTROINTESTINAL: As above] GENITOURINARY: None MUSCULOSKELETAL: None LYMPHATICS: None HEMATOLOGICAL: None PSYCHIATRY: None NEUROLOGICAL: None Past medical history to include: Hypertension, osteoarthritis Social history: Retired . Metallurgist. No history of smoking or alcohol Family history: Reviewed, noncontributory to presentation Physical examination: VITAL SIGNS: 99.3, 62, 18, 1 32 x 77, 94% on room air GENERAL: BMI 24.4, sitting up, a bit tired. EYES: Pupils equal. Conjunctiva normal. HEENT: External appearance of nose and ears normal, oral cavity grossly normal. NECK: JVD not raised; masses not palpable. HEART: First and second heart sounds are normal; no edema. LUNGS: Respiratory rate increased; decreased breath sounds. ABDOMEN: Soft, nontender, liver spleen not palpable, no masses palpable. PSYCH: Alert and oriented x3; mood and affect slightly anxiousl. NEUROLOGICAL: Cranial nerves grossly intact; no facial asymmetry, power and sensation grossly intact. LYMPHATICS: No lymph nodes palpable in the axilla and neck INVESTIGATIONS, reviewed in the clinical context: WBC 8.1 hemoglobin 11.3 platelets 262 lymphocytes 0.6 potassium 4.4 creatinine 0.99 CRP 194 Coronavirus [PCR]-detected EKG tracing personally reviewed by me-normal sinus rhythm Chest x-ray film personally reviewed by me-large obesity on the left side. Assessment and plan: -The patient presents with 4 days of increasing a lot of cough. Very low-grade fever. Any minimal sputum. Patient was diagnosed with COVID 13 days prior. Patient's pulse ox is other good on room air. Patient may have a bacterial pneumonia. I did concern is that patient has a left-sided tumor/obstructive pneumonia. At the present time. The patient on IV ceftriaxone. Also check a pro-calcitonin and d-dimer. Get a pulmonary consultation. We will also ordered a computed tomography scan of the chest with contrast to see if his underlying tumor -Positive for COVID 19. Possible pneumonia -Essential hypertension, continue with it to be started -Primary osteoarthritis, use Tylenol when necessary -DVT prophylaxis Past Medical History Past Medical History: Hypertension, Osteoarthritis (OA) History of Any Multi-Drug Resistant Organisms: None Reported Past Surgical History: Orthopedic Surgery Additional Past Surgical History / Comment(s): Nodule off voice box, bicep tendon repaired, rectal fissure repaired, bilateral cataract surgery, prostatectomy, left knee surgery. Right hip Past Anesthesia/Blood Transfusion Reactions: No Reported Reaction Additional Past Anesthesia/Blood Transfusion Reaction / Comment(s): no hx blood transfusion Past Psychological History: No Psychological Hx Reported Smoking Status: Never smoker Past Alcohol Use History: None Reported Past Drug Use History: None Reported - Past Family History Mother Family Medical History: No Reported History Medications and Allergies Home Medications Medication Instructions Recorded Confirmed Type Irbesartan 75 mg PO HS 04/02/20 09/04/20 History Cholecalciferol [Vitamin D3 (25 25 mcg PO DAILY 08/06/20 09/04/20 History Mcg = 1000 Iu)] Fluticasone Nasal [place] [Flonase 2 spr EA NOSTRIL DAILY 08/06/20 09/04/20 History Nasal [place]] Multivitamins, Thera [Multivitamin 1 tab PO DAILY 08/06/20 09/04/20 History (formulary)] Ubidecarenone [Co Q-10] 200 mg PO DAILY 08/06/20 09/04/20 History Zinc 50 mg PO DAILY 08/06/20 09/04/20 History Aspirin 325 mg PO BID #60 tab 08/10/20 09/04/20 Rx Cbd Oil 1 dose PO DAILY 09/04/20 09/04/20 History Allergies Allergy/AdvReac Type Severity Reaction Status Date / Time ketamine Allergy Hallucinati Verified 09/04/20 10:02 ons Physical Exam Vitals: Vital Signs Temp Pulse Pulse Resp BP BP Pulse Ox 09/04/20 17:28 98.3 F 73 20 136/79 98 09/04/20 16:03 98 09/04/20 14:51 97.9 F 72 16 112/67 98 09/04/20 11:10 99 F 75 18 132/84 97 09/04/20 09:26 73 18 129/76 98 09/04/20 08:54 99.3 F 62 18 132/77 94 L Intake and Output 09/04/20 09/04/20 09/04/20 06:59 14:59 22:59 Other: # Voids 1 Weight 79.379 kg Results CBC & Chem 7: 09/04/20 09:22 09/04/20 09:22 Labs: Abnormal Lab Results - Last 24 Hours (Table) 09/04/20 09/04/20 09/04/20 Range/Units 09:22 09:22 11:15 RBC 3.84 L (4.30-5.90) m/uL Hgb 11.3 L (13.0-17.5) gm/dL Hct 33.3 L (39.0-53.0) % Lymphocytes # 0.6 L (1.0-4.8) k/uL BUN 24 H (9-20) mg/dL Glucose 125 H (74-99) mg/dL POC Glucose (mg/dL) (75-99) mg/dL Ferritin 753.2 H (22.0-322.0) ng/mL Lactate Dehydrogenase 957 H (313-618) U/L C-Reactive Protein 194.1 H (<10.0) mg/L Coronavirus (PCR) Detected A (Not Detectd) 09/04/20 Range/Units 11:47 RBC (4.30-5.90) m/uL Hgb (13.0-17.5) gm/dL Hct (39.0-53.0) % Lymphocytes # (1.0-4.8) k/uL BUN (9-20) mg/dL Glucose (74-99) mg/dL POC Glucose (mg/dL) 105 H (75-99) mg/dL Ferritin (22.0-322.0) ng/mL Lactate Dehydrogenase (313-618) U/L C-Reactive Protein (<10.0) mg/L Coronavirus (PCR) (Not Detectd) Thrombosis Risk Factor Assmnt - Choose All That Apply Each Risk Factor Represents 2 Points: Age 61-74 years Thrombosis Risk Factor Assessment Total Risk Factor Score: 2 Thrombosis Risk Factor Assessment Level: Low Risk
--- NOTE | 2020-09-04 22:48 | CT ---
EXAMINATION TYPE: CT chest w con DATE OF EXAM: 09/04/2020 COMPARISON: None HISTORY: Cough, +covid. CT DLP: 339.7 mGycm Automated exposure control for dose reduction was used. CONTRAST: Performed with IV Contrast, patient injected with 100ml mL of Isovue 300. Images obtained from the thoracic inlet to the diaphragm with IV contrast. There is patchy groundglass interstitial infiltrate in both lung jade. This is more severe in the l eft lung compared to the right. The heart size is normal. There are no hilar masses. There is no medi astinal adenopathy. Thoracic aorta is intact. There is 4.3 cm aneurysm of the ascending aorta. There is no dissection. Pulmonary arteries are intact. There is no pleural effusion or pneumothorax. The [place] thorax is intact. IMPRESSION: Bilateral interstitial pneumonia. Mild aneurysm of the ascending aorta. No dissection.
[2020-09-04] MEDS: AZITHROMYCIN 500 MG in SODIUM CHLORIDE 0.9% 250 ML IVPB SCH (23:18)
[2020-09-05] MEDS: MULTIVITAMINS, THERA 1 EACH TAB PO SCH (08:35)
[2020-09-05] MEDS: DEXAMETHASONE SOD PHOSPHATE 10 MG/ML 1 ML VIAL IV SCH (08:35)
[2020-09-05] MEDS: ZINC SULFATE 220 MG CAP PO SCH (08:35)
[2020-09-05] MEDS: CHOLECALCIFEROL 25 MCG (1000 IU) TABLET PO SCH (08:35)
[2020-09-05] MEDS: ASPIRIN 325 MG TAB PO SCH ×2 (08:35→19:40)
[2020-09-05] MEDS: BENZOCAINE/MENTHOL LOZENG 1 EACH LOZENGE MUCOUS MEM PRN ×3 (08:41→21:10)
[2020-09-05] MEDS ORDERED: CBD OIL PO SCH (09:00)
[2020-09-05] MEDS ORDERED: NON FORMULARY DRUG (Ubidecarenone [Co Q-10] 100 MG Capsule) PO SCH (09:00)
[2020-09-05] MEDS: FLUTICASONE 50MCG/SPRAY NASAL 16GM EA NOSTRIL SCH (10:47)
[2020-09-05] MEDS: SODIUM CHLORIDE 0.9% 1,000 ML IV SCH (14:08)
[2020-09-05] MEDS: ASCORBIC ACID 500 MG TAB PO SCH (14:08)
--- NOTE | 2020-09-05 14:57 | P.CNPUL ---
History of Present Illness Consult date: 09/05/20 Requesting physician: Beni Lamb Reason for consult: dyspnea, abnormal CXR/CT Chief complaint: 2 week history of shortness of breath cough, weakness History of present illness: This is a very pleasant 70-year-old gentleman who follows with Dr. Torres as his primary care provider. He has a history of hypertension, recent hip replacement on 08/10/2020. He had been recovering at home and going through physical therapy. 2 weeks ago however he developed increased temperature and noted to have a fever and canceled his physical therapy. He had a CoVID test that same day and was found to be positive. He had been having developing shortness of breath cough fatigue and weakness ongoing fevers. He had a video conference with his PCP who recommended he come to the emergency room yesterday to check his O2 saturations because of dizziness and lightheadedness while walking. His saturations have been 94% and greater on room air. He is seen today in consultation on the regular medical floor. Sitting up in a chair at the bedside. Awake and alert in no acute distress. O2 saturation currently 97%. He has been afebrile this admission as well. White count 8.1. Hemoglobin 11.3. D-dimer 1.71. Sodium 138. Potassium 4.4. Creatinine 0.99. LDH 957. C-reactive protein 194. Lymphocytes 0.6. Pro-calcitonin 0.07. Chest x-ray revealed bilateral infiltrates left greater than right. Patchy groundglass interstitial infiltrates bilaterally on computed tomography scan. Review of Systems REVIEW OF SYSTEMS: CONSTITUTIONAL: Denies weakness, fatigue. Denies any recent significant weight loss or weight gain. EYES: Denies change in vision. EARS, NOSE, MOUTH, THROAT: Denies headaches, denies sore throat. CARDIOVASCULAR: Denies chest pain, palpitations or syncopal episodes. RESPIRATORY: Acid of 4 shortness of breath, cough, congestion no hemoptysis. GASTROINTESTINAL: Denies change in appetite, denies abdominal pain GENITOURINARY: Denies hematuria, denies infections. MUSKULOSKELETAL: Denies pain, denies swelling. INTEGUMENTARY: Denies rash, denies eczema. NEUROLOGICAL: Denies recent memory loss, no recent seizure activity. PSYCHIATRIC: Denies anxiety, denies depression. HEMATOLOGIC/LYMPHATIC: Denies anemia, denies enlarged lymph nodes. Past Medical History Past Medical History: Hypertension, Osteoarthritis (OA) History of Any Multi-Drug Resistant Organisms: None Reported Past Surgical History: Orthopedic Surgery Additional Past Surgical History / Comment(s): Nodule off voice box, bicep tendon repaired, rectal fissure repaired, bilateral cataract surgery, prostatectomy, left knee surgery. Right hip Past Anesthesia/Blood Transfusion Reactions: No Reported Reaction Additional Past Anesthesia/Blood Transfusion Reaction / Comment(s): no hx blood transfusion Past Psychological History: No Psychological Hx Reported Smoking Status: Never smoker Past Alcohol Use History: None Reported Past Drug Use History: None Reported - Past Family History Mother Family Medical History: No Reported History Medications and Allergies Home Medications Medication Instructions Recorded Confirmed Type Irbesartan 75 mg PO HS 04/02/20 09/04/20 History Cholecalciferol [Vitamin D3 (25 25 mcg PO DAILY 08/06/20 09/04/20 History Mcg = 1000 Iu)] Fluticasone Nasal [place] [Flonase 2 spr EA NOSTRIL DAILY 08/06/20 09/04/20 History Nasal [place]] Multivitamins, Thera [Multivitamin 1 tab PO DAILY 08/06/20 09/04/20 History (formulary)] Ubidecarenone [Co Q-10] 200 mg PO DAILY 08/06/20 09/04/20 History Zinc 50 mg PO DAILY 08/06/20 09/04/20 History Aspirin 325 mg PO BID #60 tab 08/10/20 09/04/20 Rx Cbd Oil 1 dose PO DAILY 09/04/20 09/04/20 History Allergies Allergy/AdvReac Type Severity Reaction Status Date / Time ketamine Allergy Hallucinati Verified 09/04/20 10:02 ons Physical Exam Vitals: Vital Signs Temp Pulse Pulse Resp BP Pulse Ox 09/05/20 14:00 98.0 F 66 18 122/79 98 09/05/20 10:00 98.0 F 77 18 157/84 97 09/05/20 08:13 97 09/05/20 08:00 77 73 18 09/05/20 06:07 97.7 F 68 16 148/92 97 09/05/20 01:45 97.6 F 71 16 145/92 98 09/04/20 22:14 97.7 F 74 20 144/92 98 09/04/20 17:28 98.3 F 73 20 136/79 98 09/04/20 16:03 98 09/04/20 14:51 97.9 F 72 16 112/67 98 Intake and Output 09/04/20 09/05/20 09/05/20 21:59 06:59 14:59 Other: # Voids Weight GENERAL EXAM: Alert, active, pleasant 70-year-old gentleman, on room air, c omfortable in no apparent distress. HEAD: Normocephalic. EYES: Normal reaction of pupils, equal size. NOSE: Clear with pink turbinates. THROAT: No erythema or exudates. NECK: No masses, no JVD. CHEST: No chest wall deformity. LUNGS: Equal air entry with bibasilar crackles CVS: S1 and S2 normal with no audible murmur, regular rhythm. ABDOMEN: No hepatosplenomegaly, normal bowel sounds, no guarding or rigidity. SPINE: No scoliosis or deformity SKIN: No rashes CENTRAL NERVOUS SYSTEM: No focal deficits, tone is normal in all 4 extremities. EXTREMITIES: There is no peripheral edema. No clubbing, no cyanosis. Peripheral pulses are intact. Results - Laboratory Findings CBC and BMP: 09/04/20 09:22 09/04/20 09:22 PT/INR, D-dimer PT 10.4 sec (9.0-12.0) 09/04/20 09:22 INR 1.0 (<1.2) 09/04/20 09:22 D-Dimer 1.71 mg/L FEU (<0.60) H 09/04/20 22:39 Abnormal lab findings: Abnormal Labs 09/04/20 09/04/20 09/04/20 09:22 09:22 11:15 RBC 3.84 L Hgb 11.3 L Hct 33.3 L Lymphocytes # 0.6 L D-Dimer BUN 24 H Glucose 125 H POC Glucose (mg/dL) Ferritin 753.2 H Lactate Dehydrogenase 957 H C-Reactive Protein 194.1 H Coronavirus (PCR) Detected A 09/04/20 09/04/20 11:47 22:39 RBC Hgb Hct Lymphocytes # D-Dimer 1.71 H BUN Glucose POC Glucose (mg/dL) 105 H Ferritin Lactate Dehydrogenase C-Reactive Protein Coronavirus (PCR) - Diagnostic Findings Chest x-ray: image reviewed CT scan - chest: image reviewed Assessment and Plan Assessment: 1 Acute CoVID 19 pneumonitis. Initially diagnosed 2 weeks ago. Outside the window for Remdesivir. 2 Elevated inflammatory markers secondary to above 3 History of hypertension 4 History of hip replacement 07/10/2020 Plan: The patient was seen and evaluated by Dr. Lucio Chest x-ray, CAT scans and labs reviewed Currently stable and on room air Continue dexamethasone, Lovenox, vitamin supplements Follow-up chest x-ray and labs in the a.m. Probable discharge in the a.m. We'll continue to follow and make further recommendations based on his clinical status I, the cosigning physician, performed a history & physical examination of the patient. Lungs sounds basilar crackles. Maintaining good O2 saturations in the 90s on room air. I discussed the assessment and plan of care with my nurse practitioner, Tamiko Harvey. I attest to the above consultation as dictated by her. Time with Patient: Greater than 30
[2020-09-05] MEDS: IRBESARTAN 75 MG PO SCH (19:40)
[2020-09-05] MEDS: AZITHROMYCIN 500 MG in SODIUM CHLORIDE 0.9% 250 ML IVPB SCH (21:10)
--- NOTE | 2020-09-05 22:28 | P.PN ---
Progress Note - Text Progress Note Date: 09/05/20 Chief Complaint: Cough History of presenting complaint: This is a pleasant 70-year-old patient of Dr. Roxie Torres. Chronic stable medical conditions include hypertension, osteoarthritis,. For 4 days patient denies having increasing amount bouts of coughing. Very minimal sputum. Has had some fever on and off. he was diagnosed with COVID about 13 days ago. Appetite is gone down. The last couple of days patient had one or 2 loose stools. No loss of smell or taste. Many minimal body aches. Presented to the ER. Patient's initial pulse ox was anemia from 94-98% on room air. Admitted with COVID 19 pneumonia. Possible bacterial pneumonia 2. Started on azithromycin, ceftriaxone, Decadron, Lovenox. Procalcitonin 2 negative. Antibiotics are being discontinued. No tumor on the computed tomography scan. Today- she had better. Some cough. Appetite fair. No fever Review of systems: Was done for constitutional, cardiovascular, GI, pulmonary. relevant finding as above Active Medications Acetaminophen (Acetaminophen Tab 325 Mg Tab) 650 mg PO Q6HR PRN PRN Reason: Mild Pain or Fever > 100.5 Ascorbic Acid (Ascorbic Acid 500 Mg Tab) 1,000 mg PO DAILY [facility] Last Admin: 09/05/20 14:08 Dose: 1,000 mg Documented by: Aspirin (Aspirin 325 Mg Tab) 325 mg PO BID [facility] Last Admin: 09/05/20 19:40 Dose: 325 mg Documented by: Benzocaine/Menthol (Benzocaine/Menthol Lozeng 1 Each Lozenge) 1 each MUCOUS MEM Q4HR PRN PRN Reason: Sore Throat Last Admin: 09/05/20 21:10 Dose: 1 each Documented by: Benzonatate (Benzonatate 100 Mg Cap) 200 mg PO TID PRN PRN Reason: Cough Cholecalciferol (Cholecalciferol 25 Mcg (1000 Iu) Tablet) 25 mcg PO DAILY [facility] Last Admin: 09/05/20 08:35 Dose: 25 mcg Documented by: Dexamethasone Sodium Phosphate (Dexamethasone Sod Phosphate 10 Mg/Ml 1 Ml Vial) 6 mg IV DAILY [facility] Last Admin: 09/05/20 08:35 Dose: 6 mg Documented by: Fluticasone Propionate (Fluticasone 50mcg/Gordon Nasal 16gm) 2 spray EA NOSTRIL DAILY [facility] Last Admin: 09/05/20 10:47 Dose: Not Given Documented by: Sodium Chloride (Saline 0.9%) 1,000 mls @ 50 mls/hr IV .Q20H [facility] Last Admin: 09/05/20 14:08 Dose: 50 mls/hr Documented by: Ceftriaxone Sodium 1 gm/ (Sodium Chloride) 50 mls @ 100 mls/hr IVPB Q24H [facility] Last Admin: 09/05/20 22:12 Dose: 100 mls/hr Documented by: Azithromycin 500 mg/ Sodium (Chloride) 250 mls @ 250 mls/hr IVPB Q24H [facility] Last Admin: 09/05/20 21:10 Dose: 250 mls/hr Documented by: Miscellaneous Information (Rx Info: Iv Contrast Was Given 1 Each Misc) 1 each MISCELLANE DAILY PRN PRN Reason: Per Protocol Stop: 09/06/20 21:50 Multivitamins (Multivitamins, Thera 1 Each Tab) 1 each PO DAILY@1200 [facility] Last Admin: 09/05/20 08:35 Dose: 1 each Documented by: Naloxone HCl (Naloxone 0.4 Mg/Ml 1 Ml Vial) 0.2 mg IV Q2M PRN PRN Reason: Opioid Reversal Non Formulary Drug ( (Irbesartan 75 Mg)) 75 each PO HS [facility] Last Admin: 09/05/20 19:40 Dose: 75 each Documented by: Ondansetron HCl (Ondansetron 4 Mg/2 Ml Vial) 4 mg IVP Q8HR PRN PRN Reason: Nausea And Vomiting Zinc Sulfate (Zinc Sulfate 220 Mg Cap) 220 mg PO DAILY [facility] Last Admin: 09/05/20 08:35 Dose: 220 mg Documented by: Past medical history to include: Hypertension, osteoarthritis 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 PSYCH: Alert and oriented x3; mood and affect slightly anxious. NEUROLOGICAL: Cranial nerves grossly intact; no facial asymmetry, moving all 4 limbs Rest of the exam per pulmonary and nursing INVESTIGATIONS, reviewed in the clinical context: September 05: D-dimer 1.71 procalcitonin 0.05 WBC 8.1 hemoglobin 11.3 platelets 262 lymphocytes 0.6 potassium 4.4 creatinine 0.99 CRP 194 Coronavirus [PCR]-detected EKG tracing personally reviewed by me-normal sinus rhythm Chest x-ray film personally reviewed by me-large obesity on the left side. Assessment and plan: -COVID 19 pneumonitis. Doubt bacterial infection that procalcitonin 2 is negative. Stop antibiotics. Patient is on vitamin C, vitamin D3, Decadron, zinc, Lovenox -Essential hypertension, continue with it to be started -Primary osteoarthritis, use Tylenol when necessary -DVT prophylaxis Care was discussed with the patient. Follow with pulmonary
[2020-09-06] MEDS: SODIUM CHLORIDE 0.9% 1,000 ML IV SCH (05:35)
[2020-09-06] MEDS: BENZOCAINE/MENTHOL LOZENG 1 EACH LOZENGE MUCOUS MEM PRN (05:35)
[2020-09-06] MEDS: DEXAMETHASONE SOD PHOSPHATE 10 MG/ML 1 ML VIAL IV SCH (08:25)
[2020-09-06] MEDS: FLUTICASONE 50MCG/SPRAY NASAL 16GM EA NOSTRIL SCH (08:26)
[2020-09-06] MEDS: ZINC SULFATE 220 MG CAP PO SCH (08:26)
[2020-09-06] MEDS: ASPIRIN 325 MG TAB PO SCH (08:26)
[2020-09-06] MEDS: CHOLECALCIFEROL 25 MCG (1000 IU) TABLET PO SCH (08:26)
[2020-09-06] MEDS: MULTIVITAMINS, THERA 1 EACH TAB PO SCH (08:26)
[2020-09-06] MEDS: ASCORBIC ACID 500 MG TAB PO SCH (08:26)
--- NOTE | 2020-09-06 08:31 | XR ---
EXAMINATION TYPE: XR chest 1V portable DATE OF EXAM: 09/06/2020 Comparison: 09/04/2020 Clinical History: 70-year-old male CoVID pneumonitis Findings: Heart upper limits of normal in size. Mild tortuosity of the thoracic aorta. Patchy and confluent air space opacity in the periphery of the lungs, left greater than right. No significant change. No pleur al effusion. Impression: Continued left greater than right patchy peripheral infiltrates without significant change.
[2020-09-06 10:18] VITALS: BP 121/70; PULSE 69; RESP 18; TEMP 98.3
[2020-09-06] MEDS ORDERED: ENOXAPARIN 40 MG/0.4 ML SYRINGE SQ STA (11:52)
[2020-09-06 15:17] LABS: C Reactive Protein 8.7 mg/dL (0.0-0.8)
--- NOTE | 2020-09-06 15:54 | P.PN ---
Subjective Progress Note Date: 09/06/20 Principal diagnosis: COVID 19 This is a very pleasant 70-year-old gentleman who follows with Dr. Torres as his primary care provider. He has a history of hypertension, recent hip replacement on 08/10/2020. He had been recovering at home and going through physical therapy. 2 weeks ago however he developed increased temperature and noted to have a fever and canceled his physical therapy. He had a CoVID test that same day and was found to be positive. He had been having developing shortness of breath cough fatigue and weakness ongoing fevers. He had a video conference with his PCP who recommended he come to the emergency room yesterday to check his O2 saturations because of dizziness and lightheadedness while walking. His saturations have been 94% and greater on room air. He is seen today in consultation on the regular medical floor. Sitting up in a chair at t he bedside. Awake and alert in no acute distress. O2 saturation currently 97%. He has been afebrile this admission as well. White count 8.1. Hemoglobin 11.3. D-dimer 1.71. Sodium 138. Potassium 4.4. Creatinine 0.99. LDH 957. C-reactive protein 194. Lymphocytes 0.6. Pro-calcitonin 0.07. Chest x-ray revealed bilateral infiltrates left greater than right. Patchy groundglass interstitial infiltrates bilaterally on computed tomography scan. On 06/08/2021 patient seen in follow-up on medical floor, he is on room air, pulse ox is 96%, he is breathing comfortably, no fever or chills, no chest discomfort, no cough or congestion. Vital signs have been stable, no nausea vomiting diarrhea, today's chest x-ray has been reviewed showing left greater than right patchy peripheral infiltrates without significant change. Today's labs have been reviewed d-dimer has increased to 7.85, LDH and CRP are trending down, 2 sets a pro-calcitonin as well as low at 0.07 and 0.05. Patient has had no acute events overnight, clinically stable, no shortness of breath, patient is inquiring about convalescent plasma however patient is out of the window as he presented on the 14th after the onset of his symptoms. And patient has been improving, and not worsening. At this point no need to transfuse with convalescent plasma and this was explained to the patient. Objective - Vital Signs Vital signs: Vital Signs Temp 98.3 F 09/06/20 10:00 Pulse 69 09/06/20 10:00 Resp 18 09/06/20 10:00 BP 121/70 09/06/20 10:00 Pulse Ox 96 09/06/20 10:00 Intake & Output 09/05/20 09/06/20 09/06/20 18:59 06:59 18:59 Other: Voiding Method Toilet # Voids 3 - Exam GENERAL EXAM: Alert, active, comfortable in no apparent distress. HEAD: Normocephalic/atraumatic. EYES: Normal reaction of pupils, equal size. Conjunctiva pink, sclera white. NOSE: Clear with pink turbinates. THROAT: No erythema or exudates. NECK: No masses, no JVD, no thyroid enlargement, no adenopathy. CHEST: No chest wall deformity. Symmetrical expansion. LUNGS: Equal air entry with no crackles, wheeze, rhonchi or dullness. CVS: Regular rate and rhythm, normal S1 and S2, no gallops, no murmurs, no rubs ABDOMEN: Soft, nontender. No hepatosplenomegaly, normal bowel sounds, no guarding or rigidity. EXTREMITIES: No clubbing, no edema, no cyanosis, 2+ pulses and upper and lower extremities. MUSCULOSKELETAL: Muscle strength and tone normal. SPINE: No scoliosis or deformity SKIN: No rashes CENTRAL NERVOUS SYSTEM: Alert and oriented -3. No focal deficits, tone is normal in all 4 extremities. PSYCHIATRIC: Alert and oriented -3. Appropriate affect. Intact judgment and insight. - Labs CBC & Chem 7: 09/04/20 09:22 09/04/20 09:22 Labs: Abnormal Lab Results - Last 24 Hours (Table) 09/06/20 09/06/20 Range/Units 06:45 06:45 D-Dimer 7.85 H (<0.60) mg/L FEU Lactate Dehydrogenase 307 H (120-246) U/L C-Reactive Protein 8.7 H (0.0-0.8) mg/dL Assessment and Plan Plan: Assessment: #1. Acute COVID pneumonitis presented 2 weeks after the onset of symptoms, outside the window for Remdesivir and convalescent plasma #2. Elevated inflammatory markers related to the above, improved #3. Elevated d-dimer related to the above, the patient will be sent on prophylactic dose of Xarelto for 30 days #4. History of hypertension #5. History of hip replacement Plan: From perspective patient has remained stable, he can finish outpatient course of oral dexamethasone for a total of 10 days, he continue on vitamin supplements, was noted today, was elevated over 7, and patient was sent home on Xarelto 10 mg daily for 30 days. Outpatient follow-up with Dr. Lucio any office in 2-3 weeks I performed a history & physical examination of the patient and discussed their management with my nurse practitioner, Susu Walden. I reviewed the nurse practitioner's note and agree with the documented findings and plan of care. Lung sounds are positive for clear breath sounds. The findings and the impression was discussed with the patient. I attest to the documentation by the nurse practitioner. Time with Patient: Less than 30
[2020-09-06] MEDS ORDERED: ENOXAPARIN 80 MG/0.8 ML SYRINGE SQ SCH (21:00)
--- NOTE | 2020-09-07 23:56 | P.DS ---
Providers Date of admission: 09/04/20 11:00 Expected date of discharge: 09/06/20 Attending physician: Beni Lamb Consults: 09/04/20 21:49 Consult Physician Routine Consulting Provider: Camilla Lucio Consult Reason/Comments: Pneumonia Do you want consulting provider notified?: Yes Primary care physician: Jose Alfredo Torres [facility] Course: Chief Complaint: Cough History of presenting complaint: This is a pleasant 70-year-old patient of Dr. Roxie Torres. Chronic stable medical conditions include hypertension, osteoarthritis,. For 4 days patient denies having increasing amount bouts of coughing. Very minimal sputum. Has had some fever on and off. he was diagnosed with COVID about 13 days ago. Appetite is gone down. The last couple of days patient had one or 2 loose stools. No loss of smell or taste. Many minimal body aches. Presented to the ER. Patient's initial pulse ox was anemia from 94-98% on room air. Admitted with COVID 19 pneumonia. Questionable bacterial pneumonia . Started on azithromycin, ceftriaxone, Decadron, Lovenox. Procalcitonin 2 negative. Antibiotics - discontinued. No tumor on the computed tomography scan. Today- doing much better. Breathing stable. Cleared by Dr. Doyle Discussed with the patient. Discharge discussed with Dr. Deshpande Consultation: Dr. 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 NEUROLOGICAL: Cranial nerves grossly intact; no facial asymmetry, moving all 4 limbs Rest of the exam per pulmonary and nursing INVESTIGATIONS, reviewed in the clinical context: September 06: D-dimer 7.85 CRP 8.7 procalcitonin 0.05 September 05: D-dimer 1.71 procalcitonin 0.05 WBC 8.1 hemoglobin 11.3 platelets 262 lymphocytes 0.6 potassium 4.4 creatinine 0.99 CRP 194 Coronavirus [PCR]-detected EKG tracing personally reviewed by me-normal sinus rhythm Chest x-ray film personally reviewed by me-large obesity on the left side. Assessment and plan: -COVID 19 pneumonitis. Doubt bacterial infection that procalcitonin 2 is negative. Stop antibiotics. Patient is on vitamin C, vitamin D3, Decadron, zinc, Lovenox. Patient be discharged and xarelto. -Essential hypertension, -Primary osteoarthritis, use Tylenol when necessary -DVT prophylaxis Disposition: Home Plan - Discharge Summary Discharge Rx Participant: No New Discharge Prescriptions: New Dexamethasone [Decadron] 6 mg PO DAILY #7 tablet Zinc Sulfate [Orazinc] 220 mg PO DAILY #30 cap Ascorbic Acid [Vitamin C] 1,000 mg PO DAILY #30 tab Rivaroxaban [Xarelto] 10 mg PO DAILY #30 tab Continue Ubidecarenone [Co Q-10] 200 mg PO DAILY Multivitamins, Thera [Multivitamin (formulary)] 1 tab PO DAILY Fluticasone Nasal Sharon [Flonase Nasal Sharon] 2 spr EA NOSTRIL DAILY Cholecalciferol [Vitamin D3 (25 Mcg = 1000 Iu)] 25 mcg PO DAILY Aspirin 325 mg PO BID #60 tab Discontinued Irbesartan 75 mg PO HS Zinc 50 mg PO DAILY No Action Cbd Oil 1 dose PO DAILY Discharge Medication List Cholecalciferol [Vitamin D3 (25 Mcg = 1000 Iu)] 25 mcg PO DAILY 08/06/20 [History] Fluticasone Nasal Sharon [Flonase Nasal Sharon] 2 spr EA NOSTRIL DAILY 08/06/20 [History] Multivitamins, Thera [Multivitamin (formulary)] 1 tab PO DAILY 08/06/20 [History] Ubidecarenone [Co Q-10] 200 mg PO DAILY 08/06/20 [History] Aspirin 325 mg PO BID #60 tab 08/10/20 [Rx] Cbd Oil 1 dose PO DAILY 09/04/20 [History] Ascorbic Acid [Vitamin C] 1,000 mg PO DAILY #30 tab 09/06/20 [Rx] Dexamethasone [Decadron] 6 mg PO DAILY #7 tablet 09/06/20 [Rx] Rivaroxaban [Xarelto] 10 mg PO DAILY #30 tab 09/06/20 [Rx] Zinc Sulfate [Orazinc] 220 mg PO DAILY #30 cap 09/06/20 [Rx] Follow up Appointment(s)/Referral(s): Camilla Lucio MD [STAFF PHYSICIAN] - 10/04/20 9:45 am Jose Alfredo Torres DO [Primary Care Provider] - 09/10/20 11:00 am ([facility] ) Patient Instructions/Handouts: Coronavirus Disease 2019 (COVID-19) Activity/Diet/Wound Care/Special Instructions: scot coombs instructions Discharge Disposition: HOME SELF-CARE
== END 2020-09-06 14:05 | disposition home or self-care (01) | DRG 177 ==
LOC: EC 08:53 → 4SSUR 11:00
PROVIDERS: ADMIT Hospitalist; ATTEND Hospitalist
DX: U07.1 COVID-19 (principal); J12.82 Pneumonia due to coronavirus disease 2019; M19.91 Primary osteoarthritis, unspecified site; D64.9 Anemia, unspecified; D72.819 Decreased white blood cell count, unspecified; E86.0 Dehydration; I10 Essential (primary) hypertension; Z79.82 Long term (current) use of aspirin; Z96.649 Presence of unspecified artificial hip joint; Z90.79 Acquired absence of other genital organ(s); R79.1 Abnormal coagulation profile; F41.9 Anxiety disorder, unspecified; R11.2 Nausea with vomiting, unspecified; R19.7 Diarrhea, unspecified; Z98.42 Cataract extraction status, left eye; Z98.41 Cataract extraction status, right eye; Z79.899 Other long term (current) drug therapy
CPT/HCPCS: 36415; 71045; 71260; 80053; 82728; 83605; 83615; 83735; 84145; 85025; 85379; 85610; 85730; 86140; 87635; 93005; 94760; 96361; 96374; 99285

== ENCOUNTER → 2022-04-21 | Outpatient (CLI) | payer MEDICARE, OTHER ==
--- NOTE | 2022-04-24 12:23 | PE ---
EXAMINATION TYPE: PET CT fusion skull to thigh DATE OF EXAM: 04/21/2022 CLINICAL INDICATION:Male, 72 years old with history of C61 Malig neoplasm prostate R97.21 rising PSA; TECHNIQUE: Following the intravenous administration of 5.36 mCi of Ga-68 Illuccix (PSMA), whole bod y images are performed from the skull base to the midthigh. Images are reviewed on the computer in [facility] coronal, axial, and sagittal planes. Reconstructed rotating images are created on independent wor kstation and reviewed on the computer. A non-contrast CT is performed in conjunction with the PET s can. COMPARISON: CT None, PET/CT None, FINDINGS: Mediastinal SUV mean is 0.8. Hepatic parenchyma SUV mean is 4.3. SKULL BASE AND NECK: No suspicious activity. CHEST, MEDIASTINUM, AND HILAR REGION: No suspicious activity. ABDOMEN AND PELVIS: No suspicious activity. OSSEOUS STRUCTURES: No suspicious activity. OTHER CT: Bilateral aphakia. Descending thoracic aorta is mildly dilated measuring up to 42 mm. There is coronary artery atherosclerosis. Bilateral nonobstructing renal calculi. Left renal cyst. Atheros clerosis of the arterial vasculature. Bilateral hip arthroplasty changes which limits evaluation of t he pelvis due to streak artifact. Scattered clonic diverticula. IMPRESSION: No suspicious radiotracer activity.
== END | disposition home or self-care (01) ==
LOC: RADPETMAIN 07:55
PROVIDERS: ATTEND Urology
DX: C61 Malignant neoplasm of prostate (principal); R97.21 Rising PSA following treatment for malignant neoplasm of prostate
CPT/HCPCS: 78815; A9596

== ENCOUNTER → 2023-04-07 | Outpatient (CLI) | payer MEDICARE, OTHER ==
--- NOTE | 2023-04-08 07:11 | MR ---
EXAMINATION TYPE: MR lumbar spine wo/w con DATE OF EXAM: 04/07/2023 COMPARISON: Head CT April 21, 2022 HISTORY: No prior, pain to right thigh wrapping around to front of thigh, no injury, no sx, history o f prostate CA 2 years ago TECHNIQUE: Multiplanar, multisequence images of the lumbar spine is performed without and with IV contrast, util izing 9ml mL intravenous Gadobutrol FINDINGS: Persistent levoconvex scoliosis centered at L2 level. Sagittal images of the lumbar spine s how vertebral body heights to appear satisfactory. There is grade 1 retrolisthesis L2 on L3 and L3 on L4. Multilevel disc desiccation. Advanced disc space narrowing L2-L3 level with heterogeneous Modic type I endplate changes is redemonstrated. Moderate disc space narrowing with vacuum disc phenomenon at L3-L4 level with Modic type II endplate changes is present. The conus medullaris is normal in pos ition and signal ending at mid L1 level. No suspicious postcontrast enhancement is seen. Axial images at T12-L1 level show mild broad disc bulge minimally effacing the anterior thecal sac. Axial images at L1-L2 level appear within normal limits. Axial images at L2-L3 level show spondylolisthesis with moderate broad-based posterior disc protrusio n effaces the anterior thecal sac and mild to moderate right-sided facet arthropathy. There is modera te right-sided neural foraminal narrowing. Axial images at L3-L4 level show spondylolisthesis with moderate broad disc bulge and mild/moderate f acet arthropathy and ligamentum flavum hypertrophy. There is effacement of the anterior and right lat eral thecal sac with advanced right-sided neural foraminal narrowing. Axial images at L4-L5 level show moderate to advanced facet arthropathy and ligamentum flavum hypertr ophy effacing posterior lateral thecal sac greater on the left with [id number] broad disc bulge mildly effacing the anterior thecal sac. There is moderate bilateral neural foraminal narrowing seen . Axial images at L5-S1 level shows mild broad-based posterior disc protrusion and moderate to advanced facet arthropathy with effacement of the posterolateral thecal sac and moderate left-sided neural fo raminal narrowing. Paraspinal muscle bulk is maintained. There is partial visualization of probable thin-walled cyst in the left kidney axial image 25 noted. IMPRESSION: Multilevel spondylolisthesis and degenerative change of the lumbar spine as detailed cornelius ap
== END | disposition home or self-care (01) ==
LOC: RADMRIMAIN 12:20
PROVIDERS: ATTEND Physical Medicine & Rehabilitation
DX: M48.062 Spinal stenosis, lumbar region with neurogenic claudication (principal); M41.26 Other idiopathic scoliosis, lumbar region; M47.816 Spondylosis without myelopathy or radiculopathy, lumbar region; M43.17 Spondylolisthesis, lumbosacral region; Z85.46 Personal history of malignant neoplasm of prostate
CPT/HCPCS: 72158; A9585

== ENCOUNTER → 2023-06-14 | Outpatient (CLI) | payer MEDICARE, OTHER ==
--- NOTE | 2023-06-16 09:31 | PE ---
EXAMINATION TYPE: PET CT fusion skull to thigh DATE OF EXAM: 06/14/2023 CLINICAL INDICATION:Male, 73 years old with history of C61 prostate ca; TECHNIQUE: Following the intravenous administration of 6.15 mCi of F-18 FDG, whole body images are performed from the skull base to the midthigh. Images are reviewed on the computer in the coronal, a xial, and sagittal planes. Reconstructed rotating images are created on independent workstation and reviewed on the computer. A non-contrast CT is performed in conjunction with the PET scan. CT DLP: 759 mGycm, Automated exposure control for dose reduction was used. COMPARISON: CT None, PET/CT 04/21/2022, FINDINGS: Mediastinal SUV mean is 1.5. Hepatic parenchyma SUV mean is 7.5. SKULL BASE AND NECK: No suspicious activity. CHEST, MEDIASTINUM, AND HILAR REGION: No suspicious activity. ABDOMEN AND PELVIS: No suspicious activity. OSSEOUS STRUCTURES: No suspicious activity. OTHER CT: Bilateral aphakia. Descending thoracic aorta is mildly dilated measuring up to 42 mm. There is coronary artery atherosclerosis. Bilateral nonobstructing renal calculi. Left renal cyst. Atheros clerosis of the arterial vasculature. Bilateral hip arthroplasty changes which limits evaluation of t he pelvis due to streak artifact. Scattered clonic diverticula. IMPRESSION: There remains no suspicious radiotracer activity.
== END | disposition home or self-care (01) ==
LOC: RADPETMAIN 13:48
PROVIDERS: ATTEND Urology
DX: C61 Malignant neoplasm of prostate (principal)
CPT/HCPCS: 78815; A9596

== ENCOUNTER → 2023-11-05 | Outpatient (CLI) | payer MEDICARE, OTHER ==
[2023-11-05 15:02] LABS: Testosterone <10.00 ng/dL (86.98-780.10)
[2023-11-05 15:20] LABS: Prostate Specific Antigen <0.01 ng/mL (0.000-6.500)
== END | disposition home or self-care (01) ==
LOC: LABWHC1 09:51
PROVIDERS: ATTEND Radiology Radiation Oncology
DX: C61 Malignant neoplasm of prostate (principal)
CPT/HCPCS: 36415; 84153; 84403